=== PATIENT | male | born 1990 | race Two or more races ===

== ENCOUNTER 2022-07-31 21:23 | Emergency (ER) | payer SELFPAY ==
[~2022-07-31] VITALS: Ht 165.1 cm; Wt 81.8 kg
[2022-07-31 21:29] VITALS: BP 128/74
== END 2022-07-31 22:02 | disposition left against medical advice (07) ==
LOC: EMS 21:25
DX: Z53.21 Procedure and treatment not carried out due to patient leaving prior to being seen by health care provider (principal)

== ENCOUNTER 2025-03-16 06:50 | Emergency (ER) | payer BC, OTHER ==
[~2025-03-16] VITALS: Ht 175.3 cm; Wt 99.0 kg
[2025-03-16 07:42] VITALS: TEMP 99.2
[2025-03-16 08:00] LABS: BASOPHILS % (AUTO) 0.8 % (0.0-2.0); EOSINOPHILS % (AUTO) 0.4 % (1.0-6.0); HEMATOCRIT 45.5 % (41-53); HEMOGLOBIN 15.5 g/dL (13.5-17.5); LYMPHOCYTES # (AUTO) 1.3 K/uL (1.0-4.8); LYMPHOCYTES % (AUTO) 17.3 % (22.0-44.0); MEAN CORPUSCULAR HEMOGLOBIN 28.7 pg (26.0-34.0); MEAN CORPUSCULAR HGB CONC 33.9 G/dL (31.0-37.0); MEAN CORPUSCULAR VOLUME 85 fL (80-100); MONOCYTES # (AUTO) 0.5 K/uL (0.1-1.0); MONOCYTES % (AUTO) 7.3 % (2.0-9.0); NEUTROPHILS # (AUTO) 5.5 K/uL (1.8-7.7); NEUTROPHILS % (AUTO) 74.2 % (40.0-70.0); PLATELET COUNT (AUTO) 321 K/uL (150-450); RED BLOOD CELL COUNT(AUTO) 5.39 MIL/uL (4.50-5.90); WHITE BLOOD COUNT (AUTO) 7.4 K/uL (4.5-11.0)
[2025-03-16 08:08] VITALS: BP 132/84; PULSE 95; RESP 22; O2SAT 99
[2025-03-16 08:15] LABS: ANION GAP 10 mmol/L (8-16); CALCIUM, TOTAL 9.2 mg/dL (8.8-10.5); CARBON DIOXIDE 25 mmol/L (22-29); CHLORIDE 104 mmol/L (98-107); CREATININE 0.91 mg/dL (0.60-1.30); GLOMERULAR FILTR. RATE CALC > 60 mL/min (>60); GLUCOSE,RANDOM 116 mg/dL (70-110); POTASSIUM 3.8 mmol/L (3.5-5.1); SODIUM SERUM 139 mmol/L (136-145); UREA NITROGEN, BLOOD 15 mg/dL (7-18)
[2025-03-16 08:18] LABS: ALCOHOL, BLOOD (SERUM) < 3 mg/dL (0-10)
[2025-03-16] MEDS ORDERED: HYDR-4808 PO (08:37)
== END 2025-03-16 09:10 | disposition home or self-care (01) ==
LOC: EMS 06:54
DX: F41.0 Panic disorder [episodic paroxysmal anxiety] (principal); R42 Dizziness and giddiness; R06.02 Shortness of breath; F12.90 Cannabis use, unspecified, uncomplicated
CPT/HCPCS: 99283; 80048; 85025; 36415; G0480

== ENCOUNTER 2025-03-23 20:23 | Emergency (ER) | payer OTHER ==
[~2025-03-23] VITALS: Ht 175.3 cm; Wt 95.0 kg
[~2025-03-23 20:23] MED LIST: HYDR-4808 PO
[2025-03-23 20:25] VITALS: BP 142/78; PULSE 88; RESP 16; TEMP 98.4; O2SAT 100
[2025-03-23] MEDS: LORazepam 2 MG/ML VIAL IM ONE (23:02)
[2025-03-23] MEDS ORDERED: LORA1TAB25 PO (23:02)
[2025-03-23] MEDS ORDERED: FLUO-418 PO (23:02)
[2025-03-23] MEDS ORDERED: HYDR50CA7 PO (23:02)
== END 2025-03-23 23:11 | disposition home or self-care (01) ==
LOC: EMS 20:23
DX: F41.0 Panic disorder [episodic paroxysmal anxiety] (principal); Z79.899 Other long term (current) drug therapy
CPT/HCPCS: 99283; 96372; J2060